=== PATIENT | female | born 1960 | race Two or more races ===

== ENCOUNTER 2022-08-06 20:17 | Emergency (ER) | payer SELFPAY ==
[~2022-08-06] VITALS: Ht 162.6 cm; Wt 65.9 kg
[2022-08-06] MEDS ORDERED: LIDOCAINE 1% 10 ML VIAL SQ ONE (23:30)
[2022-08-07] MEDS ORDERED: PERTUSS(ACELL),DIPH,TET VAC/PF 0.5 ML SYRINGE IM. ONE
[2022-08-07 00:29] VITALS: BP 143/82
== END 2022-08-07 00:31 | disposition home or self-care (01) ==
LOC: EMS 20:24
DX: S61.211A Laceration without foreign body of left index finger without damage to nail, initial encounter (principal); W26.0XXA Contact with knife, initial encounter; Y93.89 Activity, other specified; Y92.89 Other specified places as the place of occurrence of the external cause; Y99.8 Other external cause status
CPT/HCPCS: 99283; 12001; 90715; 90471; J3490

== ENCOUNTER 2022-08-19 13:00 | Emergency (ER) | payer MEDICAID ==
[~2022-08-19] VITALS: Ht 157.5 cm; Wt 72.7 kg
[2022-08-19 15:06] VITALS: BP 128/83
== END 2022-08-19 15:07 | disposition home or self-care (01) ==
LOC: EMS 13:38
DX: S61.211D Laceration without foreign body of left index finger without damage to nail, subsequent encounter (principal); Z48.02 Encounter for removal of sutures; X58.XXXD Exposure to other specified factors, subsequent encounter
CPT/HCPCS: 99281; Z7502